=== PATIENT | female | born 1960 | race Caucasian/White ===

== ENCOUNTER 2021-09-30 09:12 | Outpatient (CLI) | payer BC, SELFPAY ==
--- NOTE | 2021-09-30 09:18 | MR_ITS ---
WS: [id number] MRI BRAIN WITH HIGH-RESOLUTION IMAGING THROUGH THE INTERNAL AUDITORY CANALS WITHOUT AND WITH CONTRAST HISTORY: DIZZINESS AND GIDDINESS COMPARISON: None available. TECHNIQUE: Multiplanar, multisequence imaging is performed through the brain. Additional 3 mm imaging performed in multiple planes through the internal auditory canal. Postcontrast imaging with 20 ml's of MultiHance. Abnormal signal involving a large portion of the white matter in the LEFT supratentorial region. Ther e is increased T2 and FLAIR signal adjacent to the LEFT lateral ventricle beginning in the frontal lo be and extending posteriorly and inferiorly around the occipital horn of the LEFT lateral ventricle a nd into the temporal lobe. There is significant infiltration of abnormal signal into the subcortical white matter. No diffusion-weighted abnormalities to suggest this is an acute infarct. There is no as sociated hemorrhage. There are a few scattered T2 and FLAIR signal hyperintensities adjacent to the R IGHT occipital horn. On the postcontrast imaging there is leptomeningeal enhancement in the LEFT occi pital region. This is a very nonspecific pattern. No inferior displacement of the tonsils at this paulino e. Ventricles are normal size. There are a few very small lacunar infarcts within the LEFT cerebellum . Internal and external auditory canals: Unremarkable. Cranial nerves VII and VIII complexes: Unremarkable. No enhancement or mass. Cerebellopontine angles: Normal. Paranasal sinuses: Small mucous retention cyst in the LEFT maxillary sinus. Mastoid air cells: Normal. Calvarium and scalp: Normal. Visualized pala of Keys and dural venous sinuses demonstrate no abnormality. MR/MR iac's wo/w con* [id number] IMPRESSION: 1. Large area of abnormal signal within the LEFT brain involving the LEFT tyrone ventricular white matter adjacent to the lateral ventricle and extends inferior ly along the LEFT occipital horn into the LEFT occipital lobe. There is adjacen t leptomeningeal enhancement within the LEFT occipital lobe but the largest are a of the contiguous white matter abnormality does not enhance. There is no hemo rrhage. There is a very nonspecific pattern with a broad differential. Differen tial includes vasculitis, viral encephalitis and ischemic changes. Less likely infiltrative low-grade glioma or lymphoma. Atypical PRESS also should be within the differential. 2. Normal cranial nerves. 3. There are additional small lacunar infarcts in the LEFT cerebellum.
== END 2021-09-30 09:13 | disposition home or self-care (01) ==
LOC: RADSHAW 09:17
PROVIDERS: PCP Family Medicine; Visit Provider Otolaryngology
DX: R42 Dizziness and giddiness (principal); I63.9 Cerebral infarction, unspecified
CPT/HCPCS: 70553; A9577

== ENCOUNTER → 2021-10-05 08:19 | Outpatient (BNVA) | payer SELFPAY | PROVIDERS: PCP Family Medicine; Visit Provider Specialist | DX: R94.02 Abnormal brain scan (principal); G93.89 Other specified disorders of brain; H81.10 Benign paroxysmal vertigo, unspecified ear; F17.200 Nicotine dependence, unspecified, uncomplicated | CPT/HCPCS: 62270; 99205 ==

== ENCOUNTER 2021-10-05 12:05 | Outpatient (CLI) | payer BC, SELFPAY ==
[2021-10-05 14:09] LABS: Basophils # 0.1 10^3/uL (0.0-0.1); Eosinophils # 0.5 10^3/uL (0.0-0.8); Eosinophils % 6.5 %; Hematocrit 46.6 % (37.0-47.0); Hemoglobin 15.1 g/dL (11.5-15.3); Lymphocytes # 2.4 10^3/uL (0.8-4.8); Lymphocytes % 31.3 %; Mean Corpuscular HGB Conc 32.4 g/dL (30.0-36.0); Mean Corpuscular Hemoglobin 30.8 pg (28.0-34.0); Mean Corpuscular Volume 94.9 fl (81-99); Mean Platelet Volume 10.5 fL (7.4-10.4); Monocytes # 0.6 10^3/uL (0.2-0.9); Monocytes % 7.7 %; Neutrophils # 4.09 10^3/uL (1.8-7.7); Neutrophils % 53.1 %; Nucleated Red Blood Cells % 0 %; Platelet Count 246 10^3/cmm (130-400); Red Blood Count 4.91 10^6/uL (4.1-5.3); Red Cell Distribution Width 13.1 % (12.1-15.1); White Blood Count 7.7 10^3/uL (4.0-10.0)
[2021-10-05 14:17] LABS: Alanine Aminotransferase 22 U/L (0-33); Alkaline Phosphatase 78 IU/L (35-105); Anion Gap 17.2 (5-19); Aspartate Amino Transferase 21 U/L (0-32); Blood Urea Nitrogen 13 mg/dL (6-20); C Reactive Protein 1.6 mg/L (0.0-4.9); Calcium 8.9 mg/dL (8.5-10.5); Carbon Dioxide 22 mmol/L (22-29); Chloride 101 mmol/L (98-107); Cortisol Random 8.05 ug/dL (2.47-19.5); Globulin 3.1 g/dL (1.3-4.6); Glomerular Filtration Rate 73.4 mL/min (90-130); Glucose 85 mg/dL (65-115); Osmolality Calculated 281 mOsm/kg (285-295); Potassium 4.2 mmol/L (3.5-5.1); Sodium 136 mmol/L (136-145); Total Bilirubin 0.2 mg/dL (0.15-1.2); Total Protein 7.1 g/dL (6.6-8.7)
[2021-10-06 12:58] LABS: COMPLEMENT COMPONENT C3C 108 mg/dL (83-193); COMPLEMENT COMPONENT C4C 22 mg/dL (15-57)
[2021-10-06 14:33] LABS: COMPLEMENT, TOTAL (CH50) >60 U/mL (31-60)
[2021-10-06 15:26] LABS: CENTROMERE B ANTIBODY <1.0 NEG AI (<1.0 NEG); JO-1 ANTIBODY <1.0 NEG AI (<1.0 NEG); RNP ANTIBODY <1.0 NEG AI (<1.0 NEG); SCL-70 ANTIBODY <1.0 NEG AI (<1.0 NEG); SJOGREN'S ANTIBODY (SS-A) <1.0 NEG AI (<1.0 NEG); SM ANTIBODY <1.0 NEG AI (<1.0 NEG); SS-B <1.0 NEG AI (<1.0 NEG)
[2021-10-06 15:56] LABS: THYROID PEROXIDASE ANTIBODIES 248 IU/mL (<9)
[2021-10-07 12:38] LABS: ANA SCREEN, IFA POSITIVE (NEGATIVE)
[2021-10-08 14:05] LABS: Erythrocyte Sedimentation Rate 2 mm/hr (0-15)
[2021-10-15 15:07] LABS: DNA AB (DS) CRITHIDIA,IFA NEGATIVE (NEGATIVE)
[2021-10-18 12:05] LABS: IGG Serum Test See Report
[2021-10-18 12:06] LABS: Oligoclonal Bands (IGG) CSF See Report
== END 2021-10-05 12:06 | disposition home or self-care (01) ==
LOC: LAB 12:16
PROVIDERS: PCP Family Medicine; Visit Provider Specialist
DX: G37.9 Demyelinating disease of central nervous system, unspecified (principal); G35 Multiple sclerosis
CPT/HCPCS: 80053; 82040; 82042; 82533; 82784; 82945; 83873; 83916; 84157; 85025; 85651; 86140; 86160; 86162; 86235; 86255; 86334; 86376; 86617; 87070; 87075; 87205; 87798; 89050

== ENCOUNTER → 2021-10-18 09:19 | Outpatient (BNVA) | payer BC, SELFPAY | PROVIDERS: PCP Family Medicine; Visit Provider Specialist | DX: G37.9 Demyelinating disease of central nervous system, unspecified (principal) | CPT/HCPCS: 99215 ==

== ENCOUNTER → 2025-05-08 08:12 | Outpatient (BNVA) | payer MEDICAID, SELFPAY | PROVIDERS: PCP Family Medicine; Visit Provider Physician Assistant | DX: M25.532 Pain in left wrist (principal); M65.4 Radial styloid tenosynovitis [de Quervain] | CPT/HCPCS: 73110 ==

== ENCOUNTER 2025-09-28 19:27 | Emergency (ER) | payer MEDICAID, SELFPAY ==
[2025-09-28] VITALS (7 sets, daily range): BP systolic 137–161; BP diastolic 101–111; PULSE 87–94; RESP 18–22; TEMP 36.8; O2SAT 93–96; BMI 38.4
--- OUTSIDE RECORDS SUMMARY | 2025-09-28 19:35 | XMS_ITS | Clinical Summary ---
Author Organization [facility] [place] Address [address] [place] [address] Care Team Providers Care Projection Printer Name Role Phone Belkis Benz Primary Care Provider Allergies Active Allergy Reactions Criticality Noted Date Comments Lisinopril Cough Low 08/04/2021 Medications aspirin (ECOTRIN EC) 81 mg Tablet, Delayed Release (E.C.) Take 81 mg by mouth daily. Active EPINEPHrine (EPIPEN) 0.3 mg/0.3 mL Auto-InjectorIndic ations:Allergic reaction to alpha-gal Inject 0.3 mL (0.3 mg) by intramuscular injection 1 time daily as needed for Anaphylaxis. 1 Each 3 06/12/20 24 Active ergocalciferol (VITAMIN D2) 50,000 unit capsuleIndications :Vitamin D deficiency Take 1 Capsule (50,000 Units) by mouth every 7 days. 12 Capsule 3 03/14/20 25 Active simvastatin (ZOCOR) 20 mg tabletIndications: Mixed hyperlipidemia Take 1 Tablet (20 mg) by mouth daily at bedtime. 100 Tablet 3 03/16/20 25 Active diazePAM (VALIUM) 2 mg tabletIndications: Vertigo TAKE ONE TABLET BY MOUTH ONCE DAILY NEEDED FOR vertigo. 15 Tablet 1 04/16/20 25 Active Ventolin HFA 90 mcg/actuation inhalerIndications :Chronic obstructive pulmonary disease, unspecified COPD type (CMS/HCC) Inhale TWO puffs BY MOUTH EVERY SIX hours NEEDED FOR SHORTNESS OF BREATH 18 Gram 3 04/27/20 25 Active Additional Information Patient not taking.Reason: Other (Comments) (patient choice), Reported on 2025 escitalopram oxalate (LEXAPRO) 10 mg tablet Take 1 Tablet (10 mg) by mouth daily. 90 Tablet 4 07/07/20 25 Active Breztri Aerosphere 160 mcg-9mcg-4.8mcg/ac tuation HFA aerosol inhaler Take 2 Puffs by inhalation 2 times daily. 10.7 Gram 07/07/20 25 Active Glucosamine Sulfate 1,000 mg Capsule Take 1,000 mg by mouth daily. Active tirzepatide, weight loss, (Zepbound) 5 mg/0.5 mL Pen InjectorIndication s:Morbid obesity with body mass index (BMI) of 40.0 or higher (CMS/[facility]) Inject 0.5 mL (5 mg) by subcutaneous injection every 7 days. 2 mL 2 07/24/20 25 Active hydrOXYzine HCL (ATARAX) 25 mg tabletIndications: Chigger bites Take 1 Tablet (25 mg) by mouth 3 times daily as needed for Itching. 90 Tablet 07/24/20 25 Active meloxicam (MOBIC) 7.5 mg tablet Take 1 Tablet (7.5 mg) by mouth daily. 90 Tablet 1 08/22/20 25 Active losartan (COZAAR) 100 mg tabletIndications: Essential hypertension TAKE ONE TABLET BY MOUTH DAILY 100 Tablet 3 08/28/20 25 Active Active Problems Problem Noted Date Diagnosed Date Weight gain 03/14/2025 Recurrent major depressive disorder, in full rem ission 12/16/2024 Recurrent UTI 03/15/2024 Chronic arthritis 03/31/2023 Mammogram declined 03/31/2023 Onychomycosis of toenail 03/31/2023 Arthritis, multiple joint involvement 01/03/2023 Allergic reaction to alpha-gal 09/18/2022 Benign paroxysmal positional vertigo due to bilateral vestibular disorder 09/18/2022 Vitamin D deficiency 09/18/2022 Stage 3a chronic kidney disease 09/18/2022 Severe episode of recurrent major depressive disorder, without psychotic features 04/03/2022 Generalized anxiety disorder 04/03/2022 Vertigo 11/20/2021 Abnormal MRI 11/20/2021 Brain lesion 11/20/2021 Essential hypertension 11/20/2021 Chronic obstructive pulmonary disease 11/20/2021 Cigarette nicotine dependence without complicati on 11/20/2021 Scalp psoriasis 11/20/2021 Morbid obesity with body mass index (BMI) of 40. 0 or higher 11/20/2021 Mixed hyperlipidemia 11/20/2021 Resolved Problems Problem Noted Date Diagnosed Date Resolved Date Rheumatoid arthritis involvi ng multiple sites with positive rheumatoid factor 11/20/2021 11/20/19 22 Encounters Date Type Department Care Team Description 08/28/2025 Refill [facility] [address] [place] [address] Belkis Benz, DO Essential hypertension 08/20/2025 Refill [facility] [address] [place] [address] Belkis Benz, DO 08/07/2025 Refill [facility] [address] [place] [address] Belkis Benz, DO 07/25/2025 Results Follow-Up [facility] [address] [place] [address] Wheat, February, [employer] CBC WITH DIFFERENTIAL, COMPREHENSIVE METABOLIC PANEL 2025 8:20 AM CDT Office Visit [facility] [address] [place] [address] Wheat, February, [employer] Essential hypertension (Primary Dx); Chigger bites; Morbid obesity with body mass index (BMI) of 40.0 or higher ([facility]); Prediabetes; Declined influenza vaccine 07/22/2025 External Device Data STL ABSTRACTION Provider, Abstract 07/08/2025 External Device Data [facility] ABSTRACTION Provider, Abstract [facility] [address] [place] [address] Belkis Bezn, DO from Last 3 Months Immunizations Immunization Administration Dates Next Due (ADACEL/BOOSTRIX)(10 YR UP) TDAP VACCINE, 0.5ML, IM 12/06/2022 (SPIKEVAX) (12 YRS UP PRIMAR Y SERIES) COVID-19 VACCINE - MRNA-1273(PF) 100 MCG/0.5 ML IM SUSP 03/15/2021,02/15/2021 INFLUENZA VACCINE QUADRIVALENT 6 MOS UP IM 11/27 Family History Medical History Relation Name Comments Colon Cancer Brother Ganesh No Known Problems Daughter Hypertension Father Kai Respiratory Disease Father Kai COPD Depression Mother Pat Cofueld Diabetes Mother Pat Cofueld Heart Disease Mother Pat Cofueld Hypertension Mother Pat Cofueld Respiratory Disease Mother Pat Cofueld COPD Stroke Mother Pat Cofueld No Known Problems Son Relation Name Status Comments Brother Ganesh Daughter Alive Father Kai Alive Mother Pat Cofueld Alive Son Alive Social History Tobacco Use Types Packs/Day Years Used Date Smoking Tobacco: Every Day Cigarettes 1.5 28 Started: 04/27/2024 Passive Smoke Exposure: Past Smokeless Tobacco: Never Tobacco Cessation:Ready to Q uit: No; Counseling Given: Yes Comments:Have tried quit several times Alcohol Use Standard Drinks/Week Comments Yes 0 (1 standard drink = 0.6 oz pur e alcohol) Occassional drinker Feeling Safe Answer Date Recorded Are you in a relationship wi th someone who hurts you emotionally and/or physically? No 12/30/2023 Comments No Sex and Gender Information Value Date Recorded Sex Assigned at Female 08/03/2023 7:10 PM CDT Legal Sex Female 9:26 AM MASCARA MOLDER Gender Identity Female 08/03/2023 7:10 PM CDT Sexual Orientation Not on file Last Filed Vital Signs Vital Sign Reading Time Taken Comments Blood Pressure 124/82 2025 8:28 AM CDT Pulse 99 2025 8:28 AM CDT Temperature 36.7 C (98.1 F) 2025 8:28 AM CDT Respiratory Rate 18 2025 8:28 AM CDT Oxygen Saturation 92% 2025 8:28 AM CDT Inhaled Oxygen Concentration - - Weight 103.4 kg (228 lb) 2025 8:28 AM CDT Height 157.5 cm (5' 2 ) 2025 8:28 AM CDT Body Mass Index 41.7 2025 8:28 AM CDT Plan of Treatment Upcoming Encounters Date Type Department Care Team (Late st Contact Info) Description 09/30/2025 8:40 AM MASCARA MOLDER Office Visit [facility] [address] [place] [phone] Darrion Collado, [facility] [address] [place] [address] 12/11/2025 9:40 AM MASCARA MOLDER Office Visit [facility] [address] [place] [address] Belkis Benz, DO [address] [place] [address] Health Maintenance Due Date Last Done Comments HPV/Cotest (21-29) 1983 CERVICAL CANCER SCREENING 1992 HPV/Cotest (30-65) 1992 PAP SMEAR 1992 BREAST CANCER SCREENING 2002 COLORECTAL SCREENING 2007 FIT/FOBT Q 1 year 2007 Flex Sig/CT Colonography Q 5 years 2007 Lung Cancer Screening 2012 RSV VACCINE (60+ or ) (1 - Risk 50-74 years 1-dose series) 2012 ZOSTER VACCINE (1 of 2) 2012 Preventative Visit-Managed Medicaid 06/29/202306/28 INFLUENZA VACCINE (#1) 2025 2, 03/29/2021, 11/27/2019 COVID-19 Vaccine ( season) 2025, 02/15/2021 Colorectal Cancer Screening 01/10/2026 FIT-DNA Q 3 years 01/10/2026 01/10/2023 Pre-Diabetes and Diabetes Screening 12/10/202712/10, 03/26/2021 DTAP/TDAP/TD VACCINES (2 - T d or Tdap) 12/06/2032 12/06/2022 Procedures Procedure Name Priority Date/Time Associated Diagnosis Comments COMPREHENSIVE METABOLIC PANEL Routine 2025 8:58 AM CDT Essential hypertension CBC WITH DIFFERENTIAL Routine 2025 8:58 AM CDT Essential hypertension HEMOGLOBIN A1C Routine 12/10/2024 10:04 AM MASCARA MOLDER Essential hypertension Mixed hyperlipidemia Weight gain COLON CANCER SCREEN, STOOL DNA Routine 01/10/2023 5:15 PM MASCARA MOLDER Screening for colon cancer from Last 3 Months or Most Recently Relevant to Health Maintenance Results * (ABNORMAL) CBC WITH DIFFERENTIAL (2025 8:58 AM CDT) WBC 9.6 3.8 - 10.8 Thousand/u L [facility] RBC 5.09 3.80 - 5.10 Million/uL [facility] HEMOGLOBIN 16.4(H) 11.7 - 15.5 g/dL [facility] HEMATOCRIT 48.6(H) 35.0 - 45.0 % [facility] MCV 95.5 80.0 - 100.0 fL [facility] MCH 32.2 27.0 - 33.0 pg [facility] MCHC 33.7 32.0 - 36.0 g/dL [facility] Comment: For adults, a slight decrease in the calculated MCHC value (in the range of 30 to 32 g/dL) is most likely not clinically significant; however, it should be interpreted with caution in correlation with other red cell parameters and the patient's clinical condition. RDW 13.0 11.0 - 15.0 % [facility] PLATELETS 247 140 - 400 Thousand/u L [facility] MPV 10.2 7.5 - 12.5 fL [facility] NEUTROPHIL ABSOLUTE 5,760 1,500 - 7,800 cells/uL [facility] LYMPHOCYTE ABSOLUTE 2,515 850 - 3,900 cells/uL [facility] MONOCYTE ABSOLUTE 787 200 - 950 cells/uL [facility] EOSINOPHIL ABSOLUTE 461 15 - 500 cells/uL [facility] BASOPHILS ABSOLUTE 77 0 - 200 cells/uL [facility] NEUTROPHIL 60 % [facility] LYMPHOCYTES 26.2 % [facility] MONOCYTE 8.2 % [facility] EOSINOPHILS 4.8 % [facility] BASOPHILS 0.8 % [facility] Comment: FASTING:UNKNOWN FASTING: UNKNOWN Test Performed at: [facility] [address] [place] [address] Margarita Grimes MD Blood 2025 8:58 AM CDT 2025 8:58 AM CDT February [employer] HEMATOLOGY ORDERABLES Final Resu lt [facility] [phone] [facility] [address] [place] [address] * COMPREHENSIVE METABOLIC PANEL (2025 8:58 AM CDT) GLUCOSE 79 65 - 99 mg/dL [facility] Comment: Fasting reference interval BUN 16 7 - 25 mg/dL [facility] CREATININE 0.93 0.50 - 1.05 mg/dL [facility] GFR 69 > OR = 60 mL/min/1. 73m2 [facility] BUN/CREAT RATIO SEE NOTE: 6 - 22 (calc) [facility] Comment: Not Reported: BUN and Creatinine are within reference range. SODIUM 141 135 - 146 mmol/L [facility] POTASSIUM 4.5 3.5 - 5.3 mmol/L [facility] CHLORIDE 105 98 - 110 mmol/L [facility] CO2 27 20 - 32 mmol/L [facility] CALCIUM 9.0 8.6 - 10.4 mg/dL [facility] TOTAL PROTEIN 6.5 6.1 - 8.1 g/dL [facility] ALBUMIN 4.0 3.6 - 5.1 g/dL [facility] GLOBULIN 2.5 1.9 - 3.7 g/dL (calc) [facility] ALBUMIN/GLOBULIN RATIO 1.6 1.0 - 2.5 (calc) [facility] BILIRUBIN TOTAL 0.4 0.2 - 1.2 mg/dL [facility] ALKALINE PHOSPHATASE 61 37 - 153 U/L [facility] AST 15 10 - 35 U/L [facility] ALT 16 6 - 29 U/L [facility] Comment: FASTING:UNKNOWN FASTING: UNKNOWN Test Performed at: [facility] [address] [place] [phone] Margarita Grimes MD Blood 2025 8:58 AM CDT 2025 8:58 AM CDT February [facility] CHEMISTRY ORDERABLES Final Resul t [facility] [phone] [facility] [address] * (ABNORMAL) HEMOGLOBIN A1C (12/10/2024 10:04 AM MASCARA MOLDER) HEMOGLOBIN A1C 5.9(H) <5.7 % of total Hgb [facility] Comment: For someone without known diabetes, a hemoglobin A1c value between 5.7% and 6.4% is consistent with prediabetes and should be confirmed with a follow-up test. For someone with known diabetes, a value <7% indicates that their diabetes is well controlled. A1c targets should be individualized based on duration of diabetes, age, comorbid conditions, and other considerations. This assay result is consistent with an increased risk of diabetes. Currently, no consensus exists regarding use of hemoglobin A1c for diagnosis of diabetes for children. ESTIMATED AVERAGE GLUCOSE (MG/DL) 123 mg/dL [facility] ESTIMATED AVERAGE GLUCOSE (MMOL/L) 6.8 mmol/L [facility] Comment: FASTING:UNKNOWN FASTING: UNKNOWN Test Performed at: [facility] [address] [facility] [place] [address] Margarita Grimes MD Blood 12/10/2024 10:0 4 AM MASCARA MOLDER 12/10/2024 10:04 AM MASCARA MOLDER Belkis Keaton [facility] CHEMISTRY ORDERABLES Final Result [facility] [phone] [facility] [address] [place] [address] * COLON CANCER SCREEN, STOOL DNA (01/10/2023 5:15 PM MASCARA MOLDER) COLOGUARD RESULT Negative Negative [facility] Comment: NEGATIVE TEST RESULT. A negative Cologuard result indicates a low likelihood that a colorectal cancer (CRC) or advanced adenoma (adenomatous polyps with more advanced pre-malignant features) is present. The chance that a person with a negative Cologuard test has a colorectal cancer is less than 1 in 1500 (negative predictive value >99.9%) or has an advanced adenoma is less than 5.3% (negative predictive value 94.7%). These data are based on a prospective cross-sectional study of 10,000 individuals at average risk for colorectal cancer who were screened with both Cologuard and colonoscopy. (Kashif T. et al, N Engl J Med 2014;370(14):6643-6653) The normal value (reference range) for this assay is negative. COLOGUARD RE-SCREENING RECOMMENDATION: Periodic colorectal cancer screening is an important part of preventive healthcare for asymptomatic individuals at average risk for colorectal cancer. Following a negative Cologuard result, the [place] Cancer Society and U.S. Multi-Society Task Force screening guidelines recommend a Cologuard re-screening interval of 3 years. References: [place] [employer] Guideline for Colorectal Cancer Screening: https://www.cancer.org/cancer/jobxn-lmpwne-ujxnva/aiayujwwt-amohakrnw-katcwgs/ac s-rec ommendations.html.; Renaldo ARBOLEDA, Ramana ELLIS, Sabine MORAN, Colorectal Cancer Screening: Recommendations for Physicians and Patients from the U.S. Multi-Society Task Force on Colorectal Cancer Screening , Am J Gastroenterology 2017; 112:9250-5718. TEST DESCRIPTION: Composite algorithmic analysis of stool DNA-biomarkers with hemoglobin immunoassay. Quantitative values of individual biomarkers are not reportable and are not associated with individual biomarker result reference ranges. Cologuard is intended for colorectal cancer screening of adults of either sex, 45 years or older, who are at average-risk for colorectal cancer (CRC). Cologuard has been approved for use by the U.S. FDA. The performance of Cologuard was established in a cross sectional study of average-risk adults aged 50-84. Cologuard performance in patients ages 45 to 49 years was estimated by sub-group analysis of near-age groups. Colonoscopies performed for a positive result may find as the most clinically significant lesion: colorectal cancer [4.0%], advanced adenoma (including sessile serrated polyps greater than or equal to 1cm diameter) [20%] or non- advanced adenoma [31%]; or no colorectal neoplasia [45%]. These estimates are derived from a prospective cross-sectional screening study of 10,000 individuals at average risk for colorectal cancer who were screened with both Cologuard and colonoscopy. (Kashif Riddle. et al, N Engl J Med 2014;370(14):7396-0585.) Cologuard may produce a false negative or false positive result (no colorectal cancer or precancerous polyp present at colonoscopy follow up). A negative Cologuard test result does not guarantee the absence of CRC or advanced adenoma (pre-cancer). The current Cologuard screening interval is every 3 years. ([place] [employer] Society and U.S. Multi-Society Task Force). Cologuard performance data in a 10,000 patient pivotal study using colonoscopy as the reference method can be accessed at the following location: www.Orlumet/results. Additional description of the Cologuard test process, warnings and precautions can be found at www.[employer] Benchmarkrd.com. Stool STOOL SPECIMEN / Unknown 01/10/2023 5:15 PM MASCARA MOLDER 01/12/2023 7:29 PM MASCARA MOLDER us Darrion Collado [employer] BODY FLUIDS AND STOOLS Fin al Result [facility] CLIA # [id number] [address] , [address] [place] [address] from Last 3 Months or Most Recently Relevant to Health Maintenance Insurance [facility] [id number] RX INFOCROSSING Medicaid Care Teams Projection Printer Relationship Specialty Start Date End Date Belkis Benz DO [address] [place] [phone] PCP - General Family Practice 11/27/19
--- OUTSIDE RECORDS SUMMARY | 2025-09-28 19:35 | XMS_ITS | Encounter Summary ---
Author Organization [facility] Address [address] [place] [address] Care Team Providers Care Roll Forming Machine Operator Name Role Phone Belkis Benz Primary Care Provider Encounter Details Date Type Department Care Team (Latest Contact Info) Description 07/25/2025 Results Follow-Up [facility] [address] [place] [address] Mary Alice February, [employer]ER [address] [place] [address] CBC WITH DIFFERENTIAL, COMPREHENSIVE METABOLIC PANEL Social History Tobacco Use Types Packs/Day Years Used Date Smoking Tobacco: Every Day Cigarettes 1.5 28 Started: 04/27/2024 Passive Smoke Exposure: Past Smokeless Tobacco: Never Comments:Have tried quit sev eral times Alcohol Use Standard Drinks/Week Comments Yes 0 (1 standard drink = 0.6 oz pur e alcohol) Occassional drinker Feeling Safe Answer Date Recorded Are you in a relationship wi th someone who hurts you emotionally and/or physically? No 12/30/2023 Comments No Sex and Gender Information Value Date Recorded Sex Assigned at Female 08/03/2023 7:10 PM CDT Legal Sex Female 9:26 AM DREDGE PUMP OPERATOR Gender Identity Female 08/03/2023 7:10 PM CDT Sexual Orientation Not on file documented as of this encounter Plan of Treatment Upcoming Encounters Date Type Department Care Team (Late st Contact Info) Description 09/30/2025 8:40 AM DREDGE PUMP OPERATOR Office Visit [facility] [address] [place] [address] Darrion Collado, [employer] [address] [facility] [place] [phone] 12/11/2025 9:40 AM DREDGE PUMP OPERATOR Office Visit [facility] [address] [facility] [place] [address] Belkis Benz DO [address] [place] [address] documented as of this encounter Visit Diagnoses Not on filedocumented in this encounter Additional Health Concerns Assessment Noted Time PHQ-9 Depression Total Score: 6 04/11/20 25 2:00 PM CDT documented as of this encounter Care Teams Roll Forming Machine Operator Relationship Specialty Start Date End Date Belkis Benz DO [address] [place] [phone] PCP - General Family Practice 11/27/19 documented as of this encounter
--- OUTSIDE RECORDS SUMMARY | 2025-09-28 19:35 | XMS_ITS | Encounter Summary ---
Author Organization [facility] Address [address] [place] [address] Care Team Providers Care Repairer Screen Crusher Name Role Phone Belkis Benz DO Primary Care Provider Encounter Details Date Type Department Care Team (Late Contact Info) Description 01/01/2022 Lab Requisition [facility] Laboratory Services [place] [address] [place] [address] Belkis Benz DO [address] [place] [address] Social History Tobacco Use Types Packs/Day Years Used Date Smoking Tobacco: Every Day Cigarettes Smokeless Tobacco: Never Alcohol Use Standard Drinks/Week Comments No 0 (1 standard drink = 0.6 oz pur e alcohol) Comments No Sex and Gender Information Value Date Recorded Sex Assigned at Female 08/03/2023 7:10 PM CDT Legal Sex Female 9:26 AM PERSONAL CARE ATTENDANT Gender Identity Female 08/03/2023 7:10 PM CDT Sexual Orientation Not on file COVID-19 Exposure Response Date Recorded In the last month, have you been in contact with someone who was confirmed or suspected to have Coronavirus / COVID-19? No / Unsure 01/01/2022 9:29 AM PERSONAL CARE ATTENDANT documented as of this encounter Plan of Treatment Upcoming Encounters Date Type Department Care Team (Late Contact Info) Description 09/30/2025 8:40 AM PERSONAL CARE ATTENDANT Office Visit [facility] Medicine [place] [address] [place] [address] Darrion Collado FNP [address] [place] [address] 12/11/2025 9:40 AM PERSONAL CARE ATTENDANT Office Visit [facility] [address] [place] [facility] [place] [phone] Belkis Benz, DO [address] [place] [phone] documented as of this encounter Procedures Procedure Name Priority Date/Time Associated Diagnosis Comments CBC WITH DIFFERENTIAL Routine 01/01/2022 9:41 AM PERSONAL CARE ATTENDANT COMPREHENSIVE METABOLIC PANEL Routine 01/01/2022 9:41 AM PERSONAL CARE ATTENDANT documented in this encounter Results * (ABNORMAL) COMPREHENSIVE METABOLIC PANEL (01/01/2022 9:41 AM PERSONAL CARE ATTENDANT) SODIUM 139 136 - 145 mmol/L 01/01/2022 10:17 AM [facility] POTASSIUM 3.8 3.5 - 5.1 mmol/L 01/01/2022 10:17 AM [facility] CHLORIDE 102 98 - 107 mmol/L 01/01/2022 10:17 AM [facility] CO2 27 22 - 29 mmol/L 01/01/2022 10:17 AM [facility] CALCIUM 8.9 8.6 - 10.0 mg/dL 01/01/2022 10:17 AM [facility] BUN 13 6 - 20 mg/dL 01/01/2022 10:17 AM [facility] CREATININE 1.00(H) 0.51 - 0.95 mg/dL 01/01/2022 10:17 AM [facility] GLUCOSE 110(H) 74 - 99 mg/dL 01/01/2022 10:17 AM [facility] TOTAL PROTEIN 7.0 6.6 - 8.7 g/dL 01/01/2022 10:17 AM [facility] ALBUMIN 3.6 3.5 - 5.2 g/dL 01/01/2022 10:17 AM [facility] BILIRUBIN TOTAL 0.4 <=1.2 mg/dL 01/01/2022 10:17 AM [facility] ALKALINE PHOSPHATASE 84 35 - 104 U/L 01/01/2022 10:17 AM [facility] AST 15 10 - 35 U/L 01/01/2022 10:17 AM [facility] ALT 14 10 - 35 U/L 01/01/2022 10:17 AM [facility] GFR >60 >=60 mL/min/1. 73 sq meter 01/01/2022 10:17 AM [facility] Comment: eGFR calculated with 2020 CKD-EPI equation. Vegetarian diet, extremely high or low muscle mass, and may affect results. Cystatin C with Glomerular Filtration Rate is a suitable alternative for these patients. The National Kidney Foundation and the [place] Society of Nephrology (NKF-ASN) recommends using the 2020 CKD Epidemiology Collaboration (CKD-EPI) equation to calculate estimated glomerular filtration rate (eGFR). This equation is only applicable to [place] adult patients and removes race as a variable. Due to the variation of creatinine in different conditions, they recommend use of confirmatory tests such as eGFR from cystatin C or creatinine-cystatin GFR estimating equations, or direct measurement of clearance of an exogenous filtration marker in critical clinical decisions including but not limited to drug dosing, surgery, chemotherapy, and transplant referral. ANION GAP 10(L) 12 - 20 mmol/L 01/01/2022 10:17 AM [facility] Blood 01/01/2022 9:41 AM PERSONAL CARE ATTENDANT 01/01/2022 9:50 AM PERSONAL CARE ATTENDANT us Belkis Benz DO CHEMISTRY ORDERABLES Final Result [facility] CLIA # [id number] [address] [place] [id number] * (ABNORMAL) CBC WITH DIFFERENTIAL (01/01/2022 9:41 AM PERSONAL CARE ATTENDANT) WBC 15.7(H) 4.0 - 10.0 K/uL 01/01/2022 9:58 AM [facility] RBC 4.74 3.93 - 5.22 M/uL 01/01/2022 9:58 AM [facility] HEMOGLOBIN 14.4 11.2 - 15.7 g/dL 01/01/2022 9:58 AM [facility] HEMATOCRIT 44.0 34.1 - 44.9 % 01/01/2022 9:58 AM [facility] MCV 92.8 79.4 - 94.8 fL 01/01/2022 9:58 AM [facility] MCH 30.4 25.6 - 32.2 pg 01/01/2022 9:58 AM [facility] MCHC 32.7 32.2 - 35.5 g/dL 01/01/2022 9:58 AM [facility] RDW 13.0 11.0 - 14.5 % 01/01/2022 9:58 AM [facility] RDW-STDEV 44.6 36.9 - 56.9 fL 01/01/2022 9:58 AM [facility] PLATELETS 209 163 - 337 K/uL 01/01/2022 9:58 AM [facility] MPV 9.9(L) 10.0 - 14.8 fL 01/01/2022 9:58 AM [facility] NEUTROPHILS 81(H) 34 - 71 % 01/01/2022 9:58 AM [facility] LYMPHOCYTES 10(L) 19 - 52 % 01/01/2022 9:58 AM [facility] MONOCYTES 7 5 - 13 % 01/01/2022 9:58 AM [facility] EOSINOPHILS 1 1 - 6 % 01/01/2022 9:58 AM [facility] BASOPHILS 1 0 - 1 % 01/01/2022 9:58 AM [facility] IMMATURE GRANULOCYTES 0 % 01/01/2022 9:58 AM [facility] NEUTROPHIL ABSOLUTE 12.67(H) 1.56 - 6.13 K/uL 01/01/2022 9:58 AM [facility] LYMPHOCYTE ABSOLUTE 1.58 1.20 - 3.40 K/uL 01/01/2022 9:58 AM PERSONAL CARE ATTENDANT [facility] MONOCYTE ABSOLUTE 1.16(H) 0.24 - 0.36 K/uL 01/01/2022 9:58 AM PERSONAL CARE ATTENDANT [facility] EOSINOPHIL ABSOLUTE 0.19 0.04 - 0.36 K/uL 01/01/2022 9:58 AM PERSONAL CARE ATTENDANT [facility] BASOPHILS ABSOLUTE 0.08 0.01 - 0.08 K/uL 01/01/2022 9:58 AM PERSONAL CARE ATTENDANT [facility] IMMATURE GRANULOCYTES ABSOLUTE 0.06 K/uL 01/01/2022 9:58 AM PERSONAL CARE ATTENDANT [facility] Blood 01/01/2022 9:41 AM PERSONAL CARE ATTENDANT 01/01/2022 9:50 AM PERSONAL CARE ATTENDANT us Belkis Benz DO HEMATOLOGY ORDERABLES Final Result Performing Organization Address City/State/[facility] Co de Phone Number [facility] CLIA # [id number] [address] [place] [id number] documented in this encounter Visit Diagnoses Not on filedocumented in this encounter Additional Health Concerns Infection Onset Date Last Indicated Resolved Time R/O GI Pathogen 09/05/2023 09/05/2023 09/05/2023 1 2:01 PM CDT documented as of this encounter Care Teams Repairer Screen Crusher Relationship Specialty Start Date End Date Belkis Benz DO [address] [place] [address] PCP - General Family Practice 11/27/19 documented as of this encounter
--- OUTSIDE RECORDS SUMMARY | 2025-09-28 19:35 | XMS_ITS | Clinical Summary ---
Author Organization [facility] Address [address] [place] [address] Care Team Providers Care Computer Compositor Name Role Phone Belkis Benz Primary Care Provider Allergies No known active allergies Medications varenicline (CHANTIX) 0.5 mg (11)- 1 mg (42) tablets in a dose packIndications:En counter for smoking cessation counseling Take as directed on package. Dispense 1 package 1 Each 11/27/19 20 Active medroxyPROGESTERon e (PROVERA) 5 mg tabletIndications: Decreased libido,Menopause,A trophic vaginitis,Hot flash not due to menopause Take 1 Tablet (5 mg) by mouth see administration instructions. [5 mg PO qd x10-14 days q4wk] Info: start on day 1 or day 15-19 of cycle if cyclic estrogen; for women w/ intact uterus 30 Tablet 2 11/27/19 20 Active simvastatin (ZOCOR) 10 mg tabletIndications: Mixed hyperlipidemia Take 1 Tablet (10 mg) by mouth daily at bedtime. 90 Tablet 3 11/28/19 20 Active buPROPion (WELLBUTRIN) 100 mg tabletIndications: Encounter for smoking cessation counseling TAKE 1 TABLET BY MOUTH 2 TIMES DAILY. 60 Tablet 5 01/22/20 20 Active meclizine (ANTIVERT) 25 mg tabletIndications: Vertigo Take 1 Tablet (25 mg) by mouth 3 times daily as needed for Dizziness. 90 Tablet 07/17/20 20 Active albuterol HFA 90 mcg inhaler Take 2 Puffs by inhalation every 6 hours as needed for Shortness of Breath. 8.5 Gram 1 03/10/20 21 Active lisinopriL (PRINIVIL) 10 mg tabletIndications: Essential hypertension Take 1 Tablet (10 mg) by mouth daily. 90 Tablet 4 03/23/20 21 Active EPINEPHrine (EPIPEN) 0.3 mg/0.3 mL Auto-InjectorIndic ations:Allergic reaction to alpha-gal Inject 0.3 mL (0.3 mg) by intramuscular injection 1 time daily as needed for Anaphylaxis. 1 Each 1 03/30/20 21 Active Active Problems No known active problems Immunizations Immunization Administration Dates Next Due INFLUENZA VACCINE QUADRIVALENT 6 MOS UP IM 11/27 Social History Tobacco Use Types Packs/Day Years Used Date Smoking Tobacco: Every Day Cigarettes Smokeless Tobacco: Never Tobacco Cessation:Ready to Q uit: Yes; Counseling Given: Yes Alcohol Use Standard Drinks/Week Comments No 0 (1 standard drink = 0.6 oz pur e alcohol) Comments No Sex and Gender Information Value Date Recorded Sex Assigned at Not on file Legal Sex Female 7:22 PM CDT Gender Identity Not on file Sexual Orientation Not on file Last Filed Vital Signs Vital Sign Reading Time Taken Comments Blood Pressure 136/89 03/30/2021 8:05 AM CDT Pulse 93 03/29/2021 12:38 PM CDT Temperature 36.6 C (97.9 F) 03/30/2021 8:05 AM CDT Respiratory Rate 20 03/30/2021 8:05 AM CDT Oxygen Saturation 98% 03/30/2021 8:05 AM CDT Inhaled Oxygen Concentration - - Weight 96.6 kg (213 lb) 03/30/2021 6:10 AM CDT Height 157.5 cm (5' 2 ) 03/30/2021 6:10 AM CDT Body Mass Index 38.96 03/30/2021 6:10 AM CDT Plan of Treatment Health Maintenance Due Date Last Done Comments DTAP/TDAP/TD VACCINES (1 - Tdap) 1981 HPV/Cotest (21-29) 1983 CERVICAL CANCER SCREENING 1992 HPV/Cotest (30-65) 1992 PAP SMEAR 1992 BREAST CANCER SCREENING 2002 COLORECTAL SCREENING 2007 Colorectal Cancer Screening 2007 FIT-DNA Q 3 years 2007 FIT/FOBT Q 1 year 2007 Flex Sig/CT Colonography Q 5 years 2007 RSV VACCINE (60+ or ) (1 - Risk 50-74 years 1-dose series) 2012 ZOSTER VACCINE (1 of 2) 2012 Pre-Diabetes and Diabetes Screening 03/26/202403/26 INFLUENZA VACCINE (#1) 2025 03/29/2021, 2019 Procedures Procedure Name Priority Date/Time Associated Diagnosis Comments HEMOGLOBIN A1C Routine 03/26/2021 8:14 AM CDT Polydipsia from Last 3 Months or Most Recently Relevant to Health Maintenance Results * HEMOGLOBIN A1C (03/26/2021 8:14 AM CDT) HEMOGLOBIN A1C 5.6 <=5.6 % 03/26/2021 8:45 AM CDT [facility] EST. AVG GLUCOSE, A1C 114 mg/dL 03/26/2021 8:45 AM CDT [facility] Blood Venipuncture / Unknown 03/26/2021 8:14 AM CDT 03/26/2021 8:14 AM CDT Narrative [facility] - 03/26/2021 8:45 AM CDT HGB A1C INTERPRETATION NORMAL: <5.7% PRE-DIABETES: 5.7 - 6.4% DIABETES: 6.5% OR GREATER Rosie Roberts PRODUCT SAFETY MANAGER CHEMISTRY ORDERABLES Fin al Result [facility] CLIA # [id number] [address] [place] [address] [address] [place] [address] from Last 3 Months or Most Recently Relevant to Health Maintenance Insurance [employer] Care Teams Computer Compositor Relationship Specialty Start Date End Date Belkis Benz DO [address] [place] [address] PCP - General Family Practice 11/27/19
--- OUTSIDE RECORDS SUMMARY | 2025-09-28 19:35 | XMS_ITS | Encounter Summary ---
Author Organization [facility] Address [address] [place] [address] Care Team Providers Care Digital Archivist Name Role Phone Belkis Benz DO Primary Care Provider Reason for Visit * Reason Onset Date Comments Medication Question 11/16/2021 Encounter Details Date Type Department Care Team (Late st Contact Info) Description 11/16/2021 Telephone [facility] Contact Center Clinics [address] [place] [address] [place] [phone] Belkis Benz DO [address] [place] [address] Medication Question Social History Tobacco Use Types Packs/Day Years Used Date Smoking Tobacco: Every Day Cigarettes Smokeless Tobacco: Never Alcohol Use Standard Drinks/Week Comments No 0 (1 standard drink = 0.6 oz pur e alcohol) Comments No Sex and Gender Information Value Date Recorded Sex Assigned at Female 08/03/2023 7:10 PM CDT Legal Sex Female 9:26 AM WASH OIL PUMP OPERATOR Gender Identity Female 08/03/2023 7:10 PM CDT Sexual Orientation Not on file COVID-19 Exposure Response Date Recorded In the last month, have you been in contact with someone who was confirmed or suspected to have Coronavirus / COVID-19? No / Unsure 10/23/2021 7:00 AM WASH OIL PUMP OPERATOR documented as of this encounter Miscellaneous Notes * Telephone Encounter - Belkis Benz DO - 11/18/2021 9:54 AM WASH OIL PUMP OPERATOR Yes I can fill this as long as she uses such a small amount. OIL PUMP OPERATOR * Telephone Encounter - Anna Raymundo - 11/16/2021 11:13 AM CST Patient calling in today stating that she would like to know if Dr Benz would be okay with prescribing the patient Valium 2mg. Patient stated that she has a prescription for it from Dr Castellanos for patients Vertigo on 08/29 of this year. Patient stated that she only take 1/2 a tablet a day and she has 10 half tablets left of her script with no refills. Please call patient back to advise further [phone]. Patients preferred pharmacy is: [facility] OIL PUMP OPERATOR documented in this encounter Plan of Treatment Upcoming Encounters Date Type Department Care Team (Late st Contact Info) Description 09/30/2025 8:40 AM WASH OIL PUMP OPERATOR Office Visit [facility] [address] [place] [address] Darrion Collado, [facility] [address] [place] [address] 12/11/2025 9:40 AM WASH OIL PUMP OPERATOR Office Visit [facility] [address] [place] [address] Belkis Benz DO [address] [place] [address] documented as of this encounter Visit Diagnoses Diagnosis Benign paroxysmal positional vertigo due to bilateral vestibular disorder- Primary documented in this encounter Additional Health Concerns Infection Onset Date Last Indicated Resolved Time R/O COVID-19 12/14/2021 12/14/2021 12/14/2021 11:3 2 PM WASH OIL PUMP OPERATOR R/O GI Pathogen 09/05/2023 09/05/2023 09/05/2023 1 2:01 PM CDT documented as of this encounter Care Teams Digital Archivist Relationship Specialty Start Date End Date Belkis Benz DO [address] [place] [phone] PCP - General Family Practice 11/27/19 documented as of this encounter
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
[2025-09-28] MEDS: ondansetron 2 mg/ML SDV 2 mL 4 MG IVP (19:52)
[2025-09-28] MEDS: morphine 4 mg/mL SDV 1 mL IVP (19:52)
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
[2025-09-28] MEDS: mupirocin oint 22 gm 1 APPLIC TOPICAL ×2 (21:18)
[2025-09-28] MEDS: albuterol 8 gm MDI 2 PUFF INHALATION (21:19)
== END 2025-09-28 21:33 | disposition home or self-care (01) ==
PROVIDERS: Emergency Provider Emergency Medicine; PCP Family Medicine
DX: T23.249A Burn of second degree of unspecified multiple fingers (nail), including thumb, initial encounter (principal); T23.152A Burn of first degree of left palm, initial encounter; T23.151A Burn of first degree of right palm, initial encounter; T23.1 Burn of first degree of wrist and hand; Z79.82 Long term (current) use of aspirin; X00.8XXA Other exposure to uncontrolled fire in building or structure, initial encounter; F17.210 Nicotine dependence, cigarettes, uncomplicated
CPT/HCPCS: 71045; 94640; 96361; 96374; 99284; 99291; 99292; J2270; J2405; J3535; J7120; J9999